=== PATIENT | male | born 1995 | race Caucasian/White ===

== ENCOUNTER 2019-11-27 20:09 | Emergency (ER) | payer OTHER ==
[~2019-11-27] VITALS: Ht 172.7 cm; Wt 65.8 kg
[2019-11-27 20:13] VITALS: Ht 172.7 cm; Wt 65.8 kg
[2019-11-27 20:47] VITALS: BP 159/94
== END 2019-11-27 20:47 | disposition other institution (70) ==
LOC: ED 20:09
DX: Z02.89 Encounter for other administrative examinations (principal)